=== PATIENT | female | born 1970 | race Caucasian/White ===

== ENCOUNTER 2024-10-04 21:43 | Emergency (ER) | payer BC, SELFPAY ==
[2024-10-04 21:46] VITALS: BP 120/85
--- NOTE | 2024-10-04 23:38 | ED.GENMED ---
History of Present Illness
General
Chief Complaint: Musculo-Skeletal Complaint
Time Seen by Provider: 10/04/24 23:27
History of Present Illness
History of Present Illness:
see MDM
Past History
Past History
ED Past Medical History: Other and Other
ED Past Surgical History: Other
Social History
Tobacco: Non-smoker
Personal:
Living: with family
Phy Exam
Physical Exam
Physical Exam:
See MDM
Course
Orders/Labs/Results
Orders:
Orders
10/04/24 21:47
Ankle, left 3 view CR [CR Ankle - Left Min 3 Views ] Urgent
Comment:
Reason For Exam: injury
10/04/24 23:36
Crutches-Treatment ONCE
Ibuprofen [Motrin] 600 mg PO NOW STA
Vital Signs
Initial and Last Documented VS:
Initial Vital Signs
Temp Pulse Resp BP Pulse Ox
97.6 F 82 16 120/85 100
10/04/24 21:46 10/04/24 21:46 10/04/24 21:46 10/04/24 21:46 10/04/24 21:46
Last Documented Vital Signs
Temp Pulse Resp BP Pulse Ox
97.6 F 82 16 120/85 100
10/04/24 21:46 10/04/24 21:46 10/04/24 21:46 10/04/24 21:46 10/04/24 21:46
MDM/Problems Addressed
Differential Diagnosis Includes:
Note:
CHIEF COMPLAINT(S)
Left ankle pain following a fall while walking the dog.
HISTORY OF PRESENT ILLNESS
The patient is a 54-year-old female who presents with left ankle pain after an injury sustained while walking her dog. She reported that she 'just rolled it' and fell to the ground. An X-ray conducted at our medical facility was reviewed and showed
no evidence of fractures or increased spacing between the bones, suggesting that there are no tears or avulsions. The patient described the pain primarily in the outer region of the ankle without any numbness. There is swelling present, and she has
been having difficulty walking, stating that she cannot put weight on it currently. The patient has taken acetaminophen for the pain but has not used any other medications. No sensory deficits were noted upon examination; hence, the disturbance is
likely due to ligamentous strain. The patient was educated about a likely sprain, which involves stretching and potential micro-tears of the ligament.
PAST MEDICAL AND SURGICAL HISTORY
The patient provided no specific details regarding her past medical or surgical history relevant to her current injury.
SOCIAL HISTORY
No information regarding smoking, alcohol, or drug use was discussed during the conversation.
MEDICATIONS
The patient mentioned using acetaminophen for pain relief.
PHYSICAL EXAM
General: Alert, no acute distress.
Skin: Warm, dry.
Head: Normocephalic, atraumatic
Neck: Appears supple, trachea midline.
Eyes, Ears, Nose, Mouth, and Throat: Oral mucosa moist.
Cardiovascular: No signs of cyanosis
Respiratory: Respirations are non-labored.
Abdomen: Non-distended
Musculoskeletal: swelling to left lateral malleolus without skin changes. DP pulses intact. Sensation grossly intact
Neurological: No focal neurological deficit observed.
Psychiatric: Cooperative, appropriate mood and affect.
PROBLEM LIST
Acute Problems:
- Left ankle sprain
PLAN
1. Apply the R.I.C.E. protocol: Rest, Ice, Compression, and Elevation.
2. Initiate the use of Ibuprofen for better pain management as opposed to acetaminophen.
3. Advise on the use of crutches to assist with mobility given the current inability to fully bear weight on the affected ankle.
4. Referral to an insurance marketing specialist for further evaluation if symptoms persist or worsen.
5. Education on potential recovery time, with expectation of improvement over a few weeks.
6. Safety advice on maintaining three points of contact when navigating stairs to prevent further injury.
DIFFERENTIAL DIAGNOSIS
The Differential Diagnosis includes, in no particular order and is not limited to:
- Ankle ligament sprain
- Hairline fracture
- Ligamentous tear
- Ankle contusion
- Tendon strain
- Ankle impingement
- Bone bruise
- Synovitis
- Dislocation (ruled out by imaging)
- Ankle bursitis
Disposition:
SUMMARY OF ENCOUNTER
The patient, a 54-year-old female, presented to the emergency department with right ankle pain following a fall while walking her dog. She reported significant pain and swelling, with difficulty bearing weight. An X-ray of the ankle was conducted,
which showed no osseous injury, ruling out fractures. The likely diagnosis of a sprain was discussed with the patient. She was informed about the R.I.C.E. protocol (Rest, Ice, Compression, and Elevation) to manage her symptoms. Additionally, she was
advised on the use of NSAIDs for pain management. The patient expressed comfort with home care management.
DISPOSITION
Discharge.
ASSESSMENT
Left ankle sprain.
PLAN
1. Apply R.I.C.E. therapy: Rest, Ice, Compression, and Elevation.
2. Administer NSAIDs for pain relief.
3. Utilize crutches for mobility to avoid weight-bearing on the affected ankle.
4. Apply an KELSIE wrap for compression and support of the ankle.
5. Provide discharge instructions to monitor symptoms and follow up with a transitional nurse if symptoms persist or worsen.
INDEPENDENT REVIEW OF LABS AND INTERPRETATION OF TESTS
- My independent interpretation of the ankle X-ray is that there is no evidence of osseous injury.
PATIENT EDUCATION AND COUNSELING
The patient was educated on the use of R.I.C.E. therapy for managing the sprained ankle and the importance of resting the affected limb. Instruction on the use of NSAIDs for pain, crutches for mobility, and the application of an KELSIE wrap for
compression were provided. Follow-up care was advised should the symptoms persist or worsen.
FOLLOW-UP INSTRUCTIONS
The patient was advised to follow up with a transitional nurse if symptoms persist or worsen.
MEDICATION RECONCILIATION
- Prescribe and instruct the use of NSAIDs for pain management as an alternative to acetaminophen.
MEDICAL DECISION MAKING
- Complexity of Data Reviewed: Acute problem of left ankle sprain. Differential diagnosis includes ankle ligament sprain, hairline fracture, ligamentous tear, ankle contusion, tendon strain, ankle impingement, bone bruise, synovitis, dislocation
(ruled out by imaging), ankle bursitis.
- Data:
- Category 1: My independent interpretation of the ankle X-ray showed no osseous injury.
- Risk: Prescription medication was prescribed for pain management. Given the lack of acute findings on imaging and the patients stability, she was deemed safe for outpatient management with home care instructions and NSAIDs for pain relief.
DIAGNOSIS
Left ankle sprain
*Pulse Oximetry
SaO2: 100
Oxygen Mode of Delivery: Room air
Patient hypoxic: no
*Critical Care Note
Total Time (30-74mins, 75-104mins- exclusive of procedures): Not Applicable
ED Attending Note
-
Portions of this chart may have been created with voice recognition software.� Occasional wrong word or��sound alike� substitutions may have occurred due to the inherent limitations of voice recognition software.
Discharge Plan
Departure
Patient Disposition: Home (Routine Discharge)
Date of Disposition: 10/04/24
Time of Disposition: 23:39
Patient with high blood pressure during this ER visit?: No
Discharge Problem:
Left ankle sprain
Instructions: Ankle sprain - ED discharge instructions
Prescriptions:
No Action
lorazepam 0.5 MG tablet
0.5 mg PO BIDPRN PRN (Reason: anxiety) Qty: 12 0RF
Patient Comments:
03/05/2020: last filled 02/23/20, 90 tabs for 30 days from [facility] [id number]
mycophenolate mofetil 500 MG tablet
1,000 mg PO BID
ascorbic acid (vitamin C) [Vitamin C] 1,000 MG tablet
1,000 mg PO DAILY
hydrocodone-acetaminophen [[place]] 1 EACH tablet
1 ea PO Q4HPRN PRN (Reason: moderate to severe pain)
Patient Comments:
03/05/2020: last filled 11/14/19, 180 tabs for 30 days from [id number]
zinc gluconate 30 MG tablet
30 mg PO DAILY
diphenhydramine HCl [Banophen] 25 MG capsule
25 mg PO HSPRN PRN (Reason: sleep)
cholecalciferol (vitamin D3) 250 MCG tablet
10,000 unit PO DAILY
ocrelizumab [Ocrevus] 300 MG/10 ML solution
300 mg IV .YEARLY
Vitamin A
1 tab PO DAILY
cefuroxime axetil 500 MG tablet
500 mg PO BID 6 Days Qty: 12 0RF
fosfomycin tromethamine [Monurol] 3 GM packet
3 gm PO DAILY 1 Days Qty: 1 0RF
azithromycin 500 MG tablet
500 mg PO DAILY 4 Days Qty: 4 0RF
Referrals:
Nora Bradshaw PA-C [Family Provider, Family Practice]
Korey Murray DPM [Active, Podiatry]
Activity Restrictions/Additional Instructions:
Please return for any worsening symptoms.
You may return at any time if you have further concerns.
Please follow up with the transitional nurse if symptoms persist.
Thank you for choosing [facility].
Interventions
Interventions:
*Risk Screen - Suicide Last Done: 10/04/24 21:48
*Neglect/Abuse Screening Last Done: 10/04/24 21:48
Discharge Date and Time
Print Language: [id number]
[2024-10-04] MEDS: MOTRIN 600 MG PO (23:40)
[2024-10-04 23:43] VITALS: BP 135/63
== END 2024-10-04 23:51 | disposition home or self-care (01) ==
LOC: EMR 21:43
PROVIDERS: EMERGENCY PHYSICIAN Student in an Organized Health Care Education/Training Program; FAMILY PHYSICIAN Physician Assistant Medical
DX: S93.402A Sprain of unspecified ligament of left ankle, initial encounter (principal); W19.XXXA Unspecified fall, initial encounter; Y93.K1 Activity, walking an animal
CPT/HCPCS: 99283; 73610